=== PATIENT | female | born 1955 | race Caucasian/White ===

== ENCOUNTER 2016-07-15 14:11 | Emergency (ER) | payer OTHER ==
[2016-07-15 14:49] LABS: BASO % 0.2 % (0.1-1.2); EOS # 0.1 10_X3_uL (0.0-0.4); EOS % 0.8 % (0.7-5.8); GRAN # 4.8 10_X3_uL (1.6-6.1); GRAN % 57.4 % (34.0-71.1); HEMATOCRIT 41.5 % (34-45); LYMPH # 2.9 10_X3_uL (1.2-3.7); LYMPH % 34.6 % (19.3-51.7); MEAN CORPUSCULAR HEMOGLOBIN 30.2 pg (27.0-33.0); MEAN CORPUSCULAR HGB CONC 33.7 g/dL (32.0-36.0); MEAN CORPUSCULAR VOLUME 89.6 fL (79-95); MEAN PLATELET VOLUME 10.7 fl (7.5-11.5); MONO # 0.6 10_X3_uL (0.2-0.9); PLATELET COUNT 192 x10_3/uL (182-369); RED BLOOD COUNT 4.63 x10_6/uL (3.9-5.2); RED CELL DISTRIBUTION WIDTH 12.7 % (11.7-14.4); WHITE BLOOD COUNT 8.4 x10_3/uL (4.0-10.0)
[2016-07-15 15:04] LABS: ALBUMIN 4.4 gm/dL (3.4-5.0); ALKALINE PHOSPHATASE 71 U/L (50-136); ALT/SGPT 8 U/L (3.5-33.9); AST/SGOT 14 U/L (7.04-26.96); BILIRUBIN,TOTAL 0.42 mg/dL (0.0-1.0); BLOOD UREA NITROGEN 9 mg/dL (7-18); CALCIUM 9.1 mg/dL (8.7-10.7); CARBON DIOXIDE 22 mmol/L (21-32); CREATINE KINASE 89 U/L (21-215); CREATININE 0.6 mg/dL (0.6-1.3); GLUCOSE,RANDOM 134 mg/dL (70-99); POTASSIUM 3.5 mmol/L (3.5-5.1); SODIUM 140 mmol/L (136-145); TOTAL PROTEIN 7.3 gm/dL (6.4-8.2)
== END 2016-07-15 16:49 | disposition home or self-care (01) ==
LOC: ER 14:11
PROVIDERS: Emergency Medicine
DX: R07.89 Other chest pain (principal); M54.2 Cervicalgia; M54.9 Dorsalgia, unspecified; G89.29 Other chronic pain; F17.210 Nicotine dependence, cigarettes, uncomplicated; Z88.2 Allergy status to sulfonamides; Z79.899 Other long term (current) drug therapy
CPT/HCPCS: 36415; 71020; 80053; 82550; 82553; 85025; 93005; 99285-25